=== PATIENT | male | born 1955 | race Two or more races ===

== ENCOUNTER 2017-08-12 00:50 | Emergency (ER) | payer BC ==
--- NOTE | 2017-08-12 00:52 | ER Report ---
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 He notes a productive cough of clear sputum. He's had no fever or chills. He denies sore throat or rhinitis. He notes that when he gets up at night to urinate. He's been unsteady on his feet. He Notes Some Right Arm Numbness. Patient states he 's been told he said high blood pressure, but she's never been on medication. Patient was a former smoker but he quit over 10 years ago. Patient describes nasal congestion. He's been using nasal sprays and Gore's cough drops to suppress the cough, but generally works for short period of time. REVIEW OF SYSTEMS: Respiratory: As above Cardiovascular: No chest pain, no palpitations. Gastrointestinal: No vomiting, no abdominal pain. Musculoskeletal: No back pain. Allergies: Coded Allergies: Penicillins (Verified Allergy, Unknown, 08/12/17) Home Meds Active Scripts Hydrochlorothiazide (HYDROCHLOROTHIAZIDE) 25 Mg Tablet, 1 TAB PO QDAY for heart failure, #30 TAB Prov:JAVY MUHAMMAD DO 08/12/17 Losartan Potassium (LOSARTAN POTASSIUM) 25 Mg Tablet, 25 MG PO QDAY for Blood Pressure, #30 Prov:JAYV MUHAMMAD DO 08/12/17 Reviewed Nurses Notes: Yes Old Medical Records Reviewed: Yes Constitutional Vital Sign - Last 24 Hours 08/12/17 08/12/17 08/12/17 08/12/17 00:56 00:58 01:00 01:28 Temp 98.7 Pulse 98 86 Resp 20 18 B/P (MAP) 134/98 134/98 (110) 133/85 (101) Pulse Ox 88 O2 Delivery Room Air 08/12/17 08/12/17 08/12/17 08/12/17 01:28 01:30 01:32 01:50 Pulse 87 88 Resp 18 24 B/P (MAP) 133/102 (112) Pulse Ox 91 O2 Delivery Room Air 08/12/17 08/12/17 08/12/17 08/12/17 02:00 02:05 02:10 02:25 Pulse 85 81 ??? Resp 25 9 B/P (MAP) 105/86 (92) Pulse Ox 89 92 08/12/17 08/12/17 08/12/17 08/12/17 02:40 02:42 02:55 03:00 Pulse 81 84 Resp 17 26 B/P (MAP) 130/88 (102) 139/103 (115) Pulse Ox 93 90 08/12/17 08/12/17 08/12/17 08/12/17 03:10 03:15 03:20 03:30 Pulse 89 83 86 Resp 17 18 13 B/P (MAP) 136/110 (119) Pulse Ox 94 92 90 08/12/17 08/12/17 08/12/17 08/12/17 03:35 03:48 03:53 04:00 Pulse 82 79 67 Resp 19 B/P (MAP) 120/97 (105) Pulse Ox 84 95 08/12/17 08/12/17 08/12/17 08/12/17 04:05 04:10 04:25 04:30 Pulse 79 87 81 Resp 14 30 13 B/P (MAP) 120/80 (93) Pulse Ox 88 88 92 08/12/17 08/12/17 08/12/17 04:35 04:50 05:07 Pulse 77 76 Resp 8 10 B/P (MAP) 138/109 (119) Pulse Ox 89 93 91 Physical Exam Vital signs stable, pulse ox 88% on room air, afebrile General Appearance: The patient is alert, has no immediate need for airway protection and no current signs of toxicity. No acute distress HEENT: Pupils equal and round no injection. TMs normal, oropharynx with mild erythema, no exudate or petechiae Respiratory: Chest is non tender, lungs are clear to auscultation., Expiratory wheezing, no Rales Cardiac: regular rate and rhythm, no murmur Gastrointestinal: Abdomen is soft and non tender, no masses, bowel sounds normal. Musculoskeletal: Neck: Neck is supple and non tender. Extremities have full range of motion and are non tender. Skin: No rashes or lesions. DIFFERENTIAL DIAGNOSIS: After history and physical exam differential diagnosis was considered for shortness of breath including but not limited to pulmonary infectious process, COPD, asthma, pulmonary embolus and congestive heart failure. Medical Decision Making Data Points Result Diagram: 08/12/17 0120 08/12/17 0120 Laboratory Hematology Test 08/12/17 01:20 Red Blood Count 4.68 M/uL (4.00-5.60) Mean Corpuscular Volume 97.1 fL (80.0-96.0) Mean Corpuscular Hemoglobin 32.5 pg (26.0-33.0) Mean Corpuscular Hemoglobin Concent 33.5 g/dL (32.0-36.0) Red Cell Distribution Width 13.2 % (11.5-14.5) Mean Platelet Volume 8.4 fL (7.2-11.1) Neutrophils (%) (Auto) 46.2 % (39.4-72.5) Lymphocytes (%) (Auto) 44.1 % (17.6-49.6) Monocytes (%) (Auto) 6.0 % (4.1-12.4) Eosinophils (%) (Auto) 2.8 % (0.4-6.7) Basophils (%) (Auto) 0.9 % (0.3-1.4) Nucleated RBC Relative Count (auto) 0.0 /100WBC Neutrophils # (Auto) 2.1 K/uL (2.0-7.4) Lymphocytes # (Auto) 2.0 K/uL (1.3-3.6) Monocytes # (Auto) 0.3 K/uL (0.3-1.0) Eosinophils # (Auto) 0.1 K/uL (0.0-0.5) Basophils # (Auto) 0.0 K/uL (0.0-0.1) Nucleated RBC Absolute Count (auto) 0.00 K/uL D-Dimer Quantitative (PE/DVT) 1.57 ug/ml (0-0.50) Sodium Level 139 mmol/L (137-145) Potassium Level 3.6 mmol/L (3.5-5.0) Chloride Level 105 mmol/L (98-107) Carbon Dioxide Level 23 mmol/L (22-30) Blood Urea Nitrogen 12 mg/dl (9-21) Creatinine 1.00 mg/dl (0.66-1.25) Glomerular Filtration Rate Calc > 60.0 Random Glucose 127 mg/dl (75-110) Calcium Level 8.9 mg/dl (8.4-10.2) Total Bilirubin 1.3 mg/dl (0.2-1.3) Aspartate Amino Transf (AST/SGOT) 23 U/L (0-35) Alanine Aminotransferase (ALT/SGPT) 35 U/L (0-56) Alkaline Phosphatase 67 U/L (0-126) Troponin I 0.026 ng/ml B-Type Natriuretic Peptide 678 pg/ml (0-100) Total Protein 7.9 gm/dl (6.3-8.2) Albumin 4.1 g/dl (3.5-5.0) Chemistry Test 08/12/17 01:20 White Blood Count 4.5 k/uL (4.5-11.0) Red Blood Count 4.68 M/uL (4.00-5.60) Hemoglobin 15.2 g/dL (14.0-18.0) Hematocrit 45.4 % (42.0-52.0) Mean Corpuscular Volume 97.1 fL (80.0-96.0) Mean Corpuscular Hemoglobin 32.5 pg (26.0-33.0) Mean Corpuscular Hemoglobin Concent 33.5 g/dL (32.0-36.0) Red Cell Distribution Width 13.2 % (11.5-14.5) Platelet Count 253 K/uL (150-450) Mean Platelet Volume 8.4 fL (7.2-11.1) Neutrophils (%) (Auto) 46.2 % (39.4-72.5) Lymphocytes (%) (Auto) 44.1 % (17.6-49.6) Monocytes (%) (Auto) 6.0 % (4.1-12.4) Eosinophils (%) (Auto) 2.8 % (0.4-6.7) Basophils (%) (Auto) 0.9 % (0.3-1.4) Nucleated RBC Relative Count (auto) 0.0 /100WBC Neutrophils # (Auto) 2.1 K/uL (2.0-7.4) Lymphocytes # (Auto) 2.0 K/uL (1.3-3.6) Monocytes # (Auto) 0.3 K/uL (0.3-1.0) Eosinophils # (Auto) 0.1 K/uL (0.0-0.5) Basophils # (Auto) 0.0 K/uL (0.0-0.1) Nucleated RBC Absolute Count (auto) 0.00 K/uL D-Dimer Quantitative (PE/DVT) 1.57 ug/ml (0-0.50) Glomerular Filtration Rate Calc > 60.0 Calcium Level 8.9 mg/dl (8.4-10.2) Total Bilirubin 1.3 mg/dl (0.2-1.3) Aspartate Amino Transf (AST/SGOT) 23 U/L (0-35) Alanine Aminotransferase (ALT/SGPT) 35 U/L (0-56) Alkaline Phosphatase 67 U/L (0-126) Troponin I 0.026 ng/ml B-Type Natriuretic Peptide 678 pg/ml (0-100) Total Protein 7.9 gm/dl (6.3-8.2) Albumin 4.1 g/dl (3.5-5.0) Coagulation Test 08/12/17 01:20 D-Dimer Quantitative (PE/DVT) 1.57 ug/ml EKG/Imaging EKG Interpretation 12 lead EK 128 Rhythm: normal sinus rhythm [place]: Left axis deviation QRS: LVH with QRS widening and repolarization abnormality ST segments: normal, no old EKGs for comparison Imaging X-ray: Two-view chest x-ray was obtained. I viewed the images myself on the PACS system. My interpretation of the images is: Cardiomegaly, clear lung henley, no pulmonary effusion. The radiologist interpretation had no clinically significant variation from this interpretation. ED Course/Re-evaluation Clinical Indication for ER IV: IV Access ED Course Patient was admitted to an examination room. H&P was done. The dental diagnoses was considered. Patient with shortness of breath and cough for one week. He is a flatbed truck driver. He was a former smoker. Diagnostic evaluation is undertaken. Patient has an elevated BNP and d-dimer. His EKG shows LVH with strain. There is no previous EKGs for comparison. His troponin is not elevated. CT angiogram of the lungs is performed for the elevated d-dimer showing no evidence of pulmonary embolism. Patient has dilation of his thoracic aorta. Patient started on losartan and hydrochlorothiazide. He needs to follow-up with his primary care back home for further evaluation, echocardiogram would be advised. Albuterol inhalers dispensed for his COPD. Decision to Disposition Date: Aug 12, 2017 Decision to Disposition Time: 04:52 Depart Departure Latest Vital Signs Vital Signs Date Time Temp Pulse Resp B/P (MAP) Pulse Ox O2 Delivery O2 Flow Rate FiO2 08/12/17 05:07 138/109 (119) 91 08/12/17 04:50 76 10 08/12/17 01:28 Room Air 08/12/17 00:56 98.7 Impression: Primary Impression: Congestive heart failure Additional Impression: COPD (chronic obstructive pulmonary disease) Condition: Improved Disposition: HOME OR SELF-CARE New Scripts Hydrochlorothiazide (HYDROCHLOROTHIAZIDE) 25 Mg Tablet 1 TAB PO QDAY for heart failure, #30 TAB Prov: JAVY MUHAMMAD DO 08/12/17 Losartan Potassium (LOSARTAN POTASSIUM) 25 Mg Tablet 25 MG PO QDAY for Blood Pressure, #30 Prov: JAVY MUHAMMAD DO 08/12/17 Patient Instructions: COPD (Chronic Obstructive Pulmonary Disease) (ED), Heart Failure (ED) Additional Instructions: Follow-up with your primary care doctor back home within one week Go to the nearest ER for any worsening Problem Qualifiers Primary Impression: Congestive heart failure Heart failure type: unspecified Heart failure chronicity: unspecified Qualified Codes: I50.9 - Heart failure, unspecified Additional Impression: COPD (chronic obstructive pulmonary disease) COPD type: unspecified COPD Qualified Codes: J44.9 - Chronic obstructive pulmonary disease, unspecified JAVY MUHAMMAD DO Aug 12, 2017 00:52
[2017-08-12] MEDS ORDERED: ALBUTEROL/IPRATROPIUM 3 ML NEB NEB ONE (01:15)
[2017-08-12 01:38] LABS: PLATELET COUNT, AUTOMATED 253 K/uL (150-450)
--- NOTE | 2017-08-12 02:17 | RADIOLOGY IMAGING REPORT ---
[place] [facility] [place]: Scott Qureshi : 1955 MR: [id number] V: [id number] EXAM DATE: ORDERING PHYSICIAN: JAVY MUHAMMAD TECHNOLOGIST: Location: [facility] [place] Patient: Scott Qureshi : 1955 Visit/Account:[id number] Date of Sevice: 08/12/2017 CHEST: Indication: Persistent cough and respiratory distress. Technique: Frontal and lateral views were obtained. Comparison: None. Skeletal and soft tissue structures: Intact and unremarkable. Heart and mediastinum: The heart is mildly enlarged. The thoracic aorta appears tortuous. Lung henley: Well-expanded. No focal parenchymal opacities. No evidence of vascular congestion. Pleural spaces: Unremarkable. Impression: Mild cardiomegaly. No acute process is identified in the lung henley. Report Dictated By: Jeffrey Villela MD at 08/12/2017 2:11 AM Report E-Signed By: Jeffrey Villela MD at 08/12/2017 2:13 AM [id number]
[2017-08-12] MEDS ORDERED: IOPAMIDOL 76% 75 ML INFUS BTL 75 ML ONE (02:19)
[2017-08-12] MEDS ORDERED: NS 0.9% 150 ML BAG 150 ML ONE (02:19)
--- NOTE | 2017-08-12 04:42 | RADIOLOGY IMAGING REPORT ---
FACILITY: [facility] PATIENT NAME: Scott Qureshi : 1955 MR: [id number] V: [id number] EXAM DATE: ORDERING PHYSICIAN: JAVY MUHAMMAD TECHNOLOGIST: [facility] Patient: Scott Qureshi : 1955 Visit/Account:[id number] Date of Sevice: 08/12/2017 CT angiogram of the chest: Indication: Dyspnea and elevated d-dimer Technique: Helical CT was performed through the chest following IV contrast enhancement with 75 cc of Isovue 370. Multiplanar reconstructions and MIP images are reviewed. One of the following dose optimization techniques was utilized in the performance of this exam: Autom ated exposure control; adjustment of the mA and/or kV according to the patient's size; or use of an i terative reconstruction technique. Specific details can be referenced in the facility's radiology C T exam operational policy. Comparison: None. Pulmonary arteries: There is uniform contrast enhancement. There are no signs of pulmonary emboli. Aorta and great vessels: There is aneurysmal dilatation of the aortic root, which measures up to 5.5 cm. The aortic arch and descending thoracic aorta are not significantly dilated. Heart and pericardial soft tissues: The heart is mildly enlarged. No pericardial fluid or soft tissue abnormality is identified. Mediastinal soft tissues: A few unenlarged lymph nodes are present. There is no evidence of mediastin al mass, fluid, or hematoma. Lung henley: There are mild emphysematous changes in the lung apices, right more than left. There are no signs of parenchymal mass, nodules, consolidation, volume loss. Pleural spaces: No evidence of effusion, focal thickening, or pneumothorax. Skeletal structures: There are mild degenerative changes in the lower thoracic spine. No acute skelet al deformity is identified. Upper abdomen: Unremarkable. IMPRESSION: No evidence of pulmonary emboli. There is aneurysmal dilatation of the ascending thoracic aorta, with a maximum diameter of approximately 5.5 cm. The heart is mildly enlarged. No acute paren chymal or pleural abnormality is identified. Report Dictated By: Jeffrey Villela MD at 08/12/2017 4:28 AM Report E-Signed By: Jeffrey Villela MD at 08/12/2017 4:38 AM WSN:[id number]
[2017-08-12] MEDS ORDERED: HYDR-2966 PO (04:55)
[2017-08-12] MEDS ORDERED: LOSA25TA50 PO (04:55)
[2017-08-12] MEDS ORDERED: ALBUTEROL SULFATE 90 MCG/ACT 8.5 GM HNH INH PRN (05:00)
[2017-08-12 05:07] VITALS: BP 138/109
--- NOTE | 2017-08-12 08:02 | EKG ---
FACILITY: [facility] PATIENT NAME: BRIDGETTE PEDERSON : [id number] MR: [id number] V: [id number] EXAM DATE: ORDERING PHYSICIAN: JAVY MUHAMMAD TECHNOLOGIST: NUHA Test Reason : DYSPNEA Blood Pressure : / mmHG Vent. Rate : 083 BPM Atrial Rate : 083 BPM P-R Int : 184 ms QRS Dur : 124 ms QT Int : 416 ms P-R-T Axes : 038 -43 100 degrees QTc Int : 488 ms Sinus rhythm Possible Left atrial enlargement Left axis deviation Nonspecific interventricular conduction delay Diffuse ST-T abnormalities Abnormal ECG No previous ECGs available Confirmed by MANNY VILLELA ([id number]) on 08/13/2017 1:45:45 PM Referred By: Confirmed By:MANNY VILLELA
== END 2017-08-12 05:12 | disposition home or self-care (01) ==
LOC: ER 01:10
DX: I50.9 Heart failure, unspecified (principal); J44.9 Chronic obstructive pulmonary disease, unspecified
CPT/HCPCS: 71046; 71275; 83880; 84484; 85025; 85379; 93005; 94640; 99284; J7620; Q9967; 82040; 82247; 82310; 82374; 82435; 82565; 82947; 84075; 84132; 84155; 84295; 84450; 84460; 84520